=== PATIENT | female | born 1965 | race African-American/Black ===

== ENCOUNTER 2019-07-26 08:29 | Day surgery (SDC) | payer OTHER ==
[2019-07-26 08:56] VITALS: BMI 25.0
[2019-07-26] MEDS ORDERED: PROPOFOL 20 ML ONE ×4 (10:48)
[2019-07-26] MEDS ORDERED: LIDOCAINE HCL/PF 2% SDV 5ML VIAL ONE (10:48)
[2019-07-26 14:54] VITALS: TEMP 97.7
[2019-07-26 14:59] VITALS: BP 110/60; PULSE 62
--- NOTE | 2019-07-28 17:12 | PATH ---
Surgical Pathology Report Patient Name: DARSHAN CHACKO [facility]. Rec. #: [id number] /Age/Gender: 1965 (Age: 54) / F Account: [id number] Location: [facility] Taken: 07/26/2019 Received: 07/26/2019 Reported: 07/28/2019 Physicians: Antolin Zamudio M.D. Specimen(s) Received A: SECOND PORTION DUODENUM B: ANTRUM C: CECUM POLYP Clinical History GERD, screening Postoperative diagnosis: Gastritis Final Diagnosis A. DUODENUM, SECOND PORTION, BIOPSY: DUODENAL MUCOSA WITHOUT SIGNIFICANT PATHOLOGIC FINDINGS. B. GASTRIC ANTRUM, BIOPSY: GASTRIC ANTRAL MUCOSA WITH MILD CHRONIC GASTRITIS. IMMUNOHISTOCHEMICAL STAIN FOR H. PYLORI IS NEGATIVE. C. CECUM, POLYP, BIOPSY: TUBULAR ADENOMA. Electronically Signed Liudmila Tapia M.D. Gross Description A. Received in formalin, labeled "biopsy second portion of duodenum" are 2 bridges, irregular portions of soft tissue averaging 0.4 cm. in greatest dimension. The specimens are submitted in toto in one cassette. B. Received in formalin, labeled "biopsy gastric antrum" are 2 bridges, irregular portions of soft tissue averaging 0.3 cm. in greatest dimension. The specimens are submitted in toto in one cassette. C. Received in formalin, labeled "biopsy polyp cecum" is a bridges, polypoid portion of soft tissue measuring 0.6 cm. in greatest dimension. The specimen is submitted in toto in one cassette. 07/27/2019 saudi07/27/2019
== END 2019-07-26 11:30 | disposition home or self-care (01) ==
LOC: FASU-ENDO 08:29
PROVIDERS: ATTEND Internal Medicine Gastroenterology
PROC: 0DB68ZX Excision of Stomach, Via Natural or Artificial Opening Endoscopic, Diagnostic (ICD-10-PCS; 2019-07-26)
PROC: 0DB98ZX Excision of Duodenum, Via Natural or Artificial Opening Endoscopic, Diagnostic (ICD-10-PCS; principal; 2019-07-26 10:13)
DX: Z12.11 Encounter for screening for malignant neoplasm of colon (principal); D12.0 Benign neoplasm of cecum; K29.50 Unspecified chronic gastritis without bleeding
CPT/HCPCS: 88305-TC; 88342-TC